=== PATIENT | female | born 1985 | race Caucasian/White ===

== ENCOUNTER 2018-01-06 21:33 | Emergency (ER) | payer MEDICAID ==
--- NOTE | 2018-01-07 00:26 | ER Document Report ---
HPI - HPI Pain Level: 4 Notes: Patient is a 32-year-old female who presents with chief complaint of left hand pain near digits 1 and 2. Patient reports that she woke up this morning with the pain, patient unsure if she has had any injury to the area. Patient does have a history of tendinitis however she states this feels different and is in a different location. - REPRODUCTIVE Reproductive: DENIES: : - MUSCULOSKELETAL Musculoskeletal: REPORTS: Extremity pain - left hand Past Medical History - General Information source: Patient - Social History Smoking Status: Never Smoker Frequency of alcohol use: None Drug Abuse: None Family History: Reviewed & Not Pertinent Patient has suicidal ideation: No Patient has homicidal ideation: No - Past Medical History Cardiac Medical History: Denies: Hx Coronary Artery Disease, Hx Hypertension Pulmonary Medical History: Denies: Hx Asthma Endocrine Medical History: Denies: Hx Diabetes Mellitus Type 1, Hx Diabetes Mellitus Type 2 Renal/ Medical History: Denies: Hx Peritoneal Dialysis Musculoskeletal Medical History: Reports Hx Fibromyalgia, Reports Other - Tendinitis Past Surgical History: Reports: Hx Orthopedic Surgery - rt knee, Hx Tonsillectomy - Immunizations Immunizations up to date: Yes Hx Diphtheria, Pertussis, Tetanus Vaccination: Yes Vertical Provider Document - CONSTITUTIONAL Notes: PHYSICAL EXAMINATION: GENERAL: Well-appearing, well-nourished and in no acute distress. HEAD: Atraumatic, normocephalic. EYES: Pupils equal round extraocular movements intact, conjunctiva are normal. ENT: Nares patent NECK: Normal range of motion LUNGS: No respiratory distress Musculoskeletal: Normal range of motion, no swelling or erythema noted to affected area. Capillary refill less than 3 seconds, normal motor and sensation distal to area of concern. NEUROLOGICAL: Normal speech, normal gait. PSYCH: Normal mood, normal affect. SKIN: Warm, Dry, normal turgor, no rashes or lesions noted. - INFECTION CONTROL TRAVEL OUTSIDE OF THE [place] IN LAST 30 DAYS: No Course - Re-evaluation Re-evalutation: X-ray is negative for any acute fracture or dislocation. Patient will be placed in a Nilo wrap for comfort and discharged home in stable condition. - Vital Signs Vital signs: Temp Pulse Resp BP Pulse Ox 99.0 F 57 L 20 121/65 99 01/06/18 22:14 01/06/18 22:14 01/06/18 22:14 01/06/18 22:14 01/06/18 22:14 Procedures - Immobilization Left hand Immobilizer type: Nilo wrap Discharge - Discharge Clinical Impression: Contusion Qualifiers: Encounter type: initial encounter Contusion area: hand Laterality: left Qualified Code(s): S60.222A - Contusion of left hand, initial encounter Condition: Stable Disposition: HOME, SELF-CARE Additional Instructions: Contusion Your injury has resulted in a contusion -- a crushing of the deep tissues. No injury to important structures was detected during the physician's exam. Contusions vary in the amount of pain they cause, and in the length of time required for healing. Typically, the area will become bruised, and will remain painful to touch for two or three weeks. However, most patients are back to working and playing within a few days. After the initial period of rest and cold-packs, your symptoms (together with the doctor's recommendations) will determine how rapidly you can get back to full activity. Usually this means "do what feels okay, but don't do things that hurt." If re-examination was recommended, it's important to follow up as instructed. Call the doctor or return any time if pain increases, if swelling becomes severe, if you develop numbness or weakness in an injured extremity, or if any other alarming symptoms occur. Please use the splint as needed for comfort. Take ibuprofen 600 mg every 6 hours as needed for pain and inflammation. You may try some ice to the area, 20 minutes on 20 minutes off. If the pain continues follow-up with orthopedics. I will provide you with contact information for them should you need it. Referrals: [facility], DO [ACTIVE STAFF] - Follow up as needed
--- NOTE | 2018-01-07 01:22 | RADIOLOGY REPORT (SQ) ---
EXAM DESCRIPTION: Left hand x-ray, three views dated January 07, 2018 at 1:03 AM. CLINICAL HISTORY: pain along 1st/2nd digits COMPARISON: None FINDINGS: Three x-ray views of the left hand were submitted. There is no acute fracture or dislocation. Bone mineralization is within normal limits. There is no radiopaque foreign body material. IMPRESSION: No acute fracture or dislocation.
[2018-01-07] MEDS ORDERED: KETOROLAC TROMETHAMINE 60 MG/2 ML SDV IM ONE (01:35)
[2018-01-07 02:32] VITALS: BP 111/67
== END 2018-01-07 02:32 | disposition home or self-care (01) ==
LOC: ER 21:33
DX: S60.222A Contusion of left hand, initial encounter (principal); X58.XXXA Exposure to other specified factors, initial encounter
CPT/HCPCS: 99283; 73130; L3908; J1885

== ENCOUNTER 2019-01-23 20:03 | Emergency (ER) | payer MEDICAID ==
[2019-01-23] MEDS ORDERED: NORMAL SALINE 1000 ML 1,000 ML IV ONE (21:37)
[2019-01-23] MEDS ORDERED: METOCLOPRAMIDE HCL INJ/PF 10 MG/2 ML SDV IV ONE (21:38)
--- NOTE | 2019-01-23 21:42 | ER Document Report ---
ED Medical Screen (RME) - General Chief Complaint: Nausea/Vomiting Stated Complaint: NAUSEA Time Seen by Provider: 01/23/19 21:31 Notes: Patient is a G4, P3 9-week female who presents emergency department with a chief complaint of nausea and vomiting. Denies any abdominal pain. Patient states that she has vomited twice, but has not been vomiting anymore because she refuses to eat or drink anything. She states that she is not had morning sickness with her previous pregnancies. She called the health department and they referred her to the emergency department. Denies any dysuria, vaginal discharge, or vaginal bleeding. Exam: Soft nontender abdomen. I have greeted and performed a rapid initial assessment of this patient. A comprehensive ED assessment and evaluation of the patient, analysis of test results and completion of medical decision making process will be conducted by an additional ED providers. TRAVEL OUTSIDE OF THE [place] IN LAST 30 DAYS: No - Related Data Allergies/Adverse Reactions: No Known Allergies Allergy (Verified 01/23/19 21:11) Past Medical History - Past Medical History Cardiac Medical History: Denies: Hx Coronary Artery Disease, Hx Hypertension Pulmonary Medical History: Denies: Hx Asthma Endocrine Medical History: Denies: Hx Diabetes Mellitus Type 1, Hx Diabetes Mellitus Type 2 Renal/ Medical History: Denies: Hx Peritoneal Dialysis Musculoskeltal Medical History: Reports Hx Fibromyalgia Past Surgical History: Reports: Hx Orthopedic Surgery - rt knee, Hx Tonsillectomy - Immunizations Immunizations up to date: Yes Hx Diphtheria, Pertussis, Tetanus Vaccination: Yes Physical Exam - Vital signs Vitals: Temp Pulse Resp BP Pulse Ox 98.2 F 53 L 16 147/62 H 99 01/23/19 20:46 01/23/19 20:46 01/23/19 20:46 01/23/19 20:46 01/23/19 20:46 Course - Vital Signs Vital signs: Temp Pulse Resp BP Pulse Ox 98.2 F 53 L 16 147/62 H 99 01/23/19 20:46 01/23/19 20:46 01/23/19 20:46 01/23/19 20:46 01/23/19 20:46
[2019-01-23 22:55] LABS: ABSOLUTE LYMPHOCYTES (AUTO) 2.6 10^3/uL (0.5-4.7); ABSOLUTE MONOCYTES (AUTO) 0.7 10^3/uL (0.1-1.4); ABSOLUTE NEUT (AUTO) 6.9 10^3/uL (1.7-8.2); BASOPHILS % (AUTO) 0.3 % (0-2); EOSINOPHILS % (AUTO) 0.3 % (0-6); HEMATOCRIT 37.1 % (36.0-47.0); HEMOGLOBIN 12.8 g/dL (12.0-15.5); LYMPHOCYTES % (AUTO) 25.6 % (13-45); MEAN CORPUSCULAR HEMOGLOBIN 30.9 pg (27.0-33.4); MEAN CORPUSCULAR HGB CONC 34.5 g/dL (32.0-36.0); MEAN CORPUSCULAR VOLUME 90 fl (80-97); MONOCYTES % (AUTO) 7.2 % (3-13); PLATELET COUNT 268 10^3/uL (150-450); RED BLOOD COUNT 4.14 10^6/uL (3.72-5.28); RED CELL DISTRIBUTION WIDTH 12.6 % (11.5-14.0); SEGMENTED NEUTROPHILS % (AUTO) 66.6 % (42-78); TOTAL CELLS COUNTED % (AUTO) 100 %; WHITE BLOOD COUNT 10.3 10^3/uL (4.0-10.5)
[2019-01-23 23:07] LABS: ALBUMIN 4.2 g/dL (3.5-5.0); ALKALINE PHOSPHATASE 67 U/L (38-126); ANION GAP 13 (5-19); ASPARTATE AMINO TRANSFERASE 19 U/L (14-36); BILIRUBIN,DIRECT 0.1 mg/dL (0.0-0.4); BILIRUBIN,TOTAL 0.5 mg/dL (0.2-1.3); BLOOD UREA NITROGEN 10 mg/dL (7-20); CALCIUM 9.9 mg/dL (8.4-10.2); CARBON DIOXIDE 22 mmol/L (22-30); CHLORIDE 104 mmol/L (98-107); GLUCOSE 84 mg/dL (75-110); POTASSIUM 3.8 mmol/L (3.6-5.0); TOTAL PROTEIN 7.2 g/dL (6.3-8.2)
--- NOTE | 2019-01-23 23:54 | ER Document Report ---
ED GI/ - General Chief Complaint: Nausea/Vomiting Stated Complaint: NAUSEA Time Seen by Provider: 01/23/19 21:31 Notes: Patient is a 33-year-old female that comes to the emergency department for chief complaint of nausea and vomiting in . She is at 9 weeks gestation by first trimester ultrasound, she takes vitamins, she is not on any other medications. She denies fever, vomiting blood, abnormal bowel movements, vaginal bleeding, or specific abdominal pain. She states today she vomited twice and she could not eat or drink anything. She has received IV fluids and Reglan from triage, she states actually now she feels much improved. No current complaints. Only other reported medical history is fibromyalgia. TRAVEL OUTSIDE OF THE [place] IN LAST 30 DAYS: No - Related Data Allergies/Adverse Reactions: No Known Allergies Allergy (Verified 01/23/19 21:11) Past Medical History - General Information source: Patient - Social History Smoking Status: Never Smoker Frequency of alcohol use: None Drug Abuse: None Lives with: Family Family History: Reviewed & Not Pertinent Patient has suicidal ideation: No Patient has homicidal ideation: No - Past Medical History Cardiac Medical History: Denies: Hx Coronary Artery Disease, Hx Hypertension Pulmonary Medical History: Denies: Hx Asthma Endocrine Medical History: Denies: Hx Diabetes Mellitus Type 1, Hx Diabetes Mellitus Type 2 Renal/ Medical History: Denies: Hx Peritoneal Dialysis Musculoskeletal Medical History: Reports Hx Fibromyalgia Past Surgical History: Reports: Hx Orthopedic Surgery - rt knee, Hx Tonsillectomy - Immunizations Immunizations up to date: Yes Hx Diphtheria, Pertussis, Tetanus Vaccination: Yes Review of Systems - Review of Systems Constitutional: No symptoms reported EENT: No symptoms reported Cardiovascular: No symptoms reported Respiratory: No symptoms reported Gastrointestinal: See HPI Genitourinary: No symptoms reported Female Genitourinary: See HPI Musculoskeletal: No symptoms reported Skin: No symptoms reported Hematologic/Lymphatic: No symptoms reported Neurological/Psychological: No symptoms reported Physical Exam - Vital signs Vitals: Temp Pulse Resp BP Pulse Ox 98.2 F 53 L 16 147/62 H 99 01/23/19 20:46 01/23/19 20:46 01/23/19 20:46 01/23/19 20:46 01/23/19 20:46 - Notes Notes: GENERAL: Alert, interacts well. No acute distress. HEAD: Normocephalic, atraumatic. EYES: Pupils equal, round, and reactive to light. Extraocular movements intact. ENT: Oral mucosa moist, tongue midline. Oropharynx unremarkable. NECK: Full range of motion. Supple. Trachea midline. LUNGS: Clear to auscultation bilaterally, no wheezes, rales, or rhonchi. No respiratory distress. HEART: Regular rate and rhythm. No murmur ABDOMEN: Soft, non-tender. Non-distended. Bowel sounds present in all 4 quadrants. GENITOURINARY: Deferred EXTREMITIES: Moves all 4 extremities spontaneously. No edema, normal radial and dorsalis pedis pulses bilaterally. No cyanosis. BACK: no cervical, thoracic, lumbar midline tenderness. No saddle anesthesia, normal distal neurovascular exam. Moves all extremities in full range of motion. NEUROLOGICAL: Alert and oriented x3. Normal speech. Cranial nerves II through XII grossly intact. PSYCH: Normal affect, normal mood. SKIN: Warm, dry, normal turgor. No rashes or lesions noted. Course - Re-evaluation Re-evalutation: Patient is well-appearing on my exam. Vital signs unremarkable, soft benign abdomen, no current complaints. Patient will be given p.o. trial. CBC unremarkable, chemistry unremarkable, urinalysis showing a few ketones but is otherwise nonspecific. Patient without vaginal bleeding and already has an IUP confirmed. Patient given additional IV fluids, tolerated p.o. without difficulty, no additional complaints or symptoms. Patient will be discharged with symptom management, discussed follow-up and return precautions. Patient states appreciation and agreement. - Vital Signs Vital signs: Temp Pulse Resp BP Pulse Ox 98.4 F 58 L 18 120/64 100 01/24/19 02:31 01/24/19 02:31 01/24/19 02:31 01/24/19 02:31 01/24/19 02:31 - Laboratory Result Diagrams: 01/23/19 22:28 01/23/19 22:28 Laboratory results interpreted by me: 01/23/19 23:48 Urine Ketones 20 H Ur Leukocyte Esterase MODERATE H Urine Ascorbic Acid 40 H Discharge - Discharge Clinical Impression: Vomiting affecting , Dehydration Condition: Stable Disposition: HOME, SELF-CARE Additional Instructions: Your evaluation shows dehydration but is otherwise reassuring. Take the Reglan if needed for nausea/vomiting, you can also add Benadryl to th is, [id number] ranitidine can help as well if needed. Follow-up with your provider for additional management. Return if you worsen including uncontrolled vomiting, fever, severe pain in the abdomen, or any other concerning or worsening symptoms. Prescriptions: Metoclopramide HCl [Reglan] 5 mg PO ASDIR PRN #30 tablet PRN Reason:
[2019-01-24 00:04] LABS: APPEARANCE,URINE SLIGHTLY-CLOUDY; BILIRUBIN,URINE NEGATIVE (NEGATIVE); COLOR,URINE YELLOW; GLUCOSE, URINE NEGATIVE (NEGATIVE); KETONES,URINE 20 mg/dL (NEGATIVE); LEUKOCYTE ESTERASE,URINE MODERATE (NEGATIVE); NITRITE,URINE NEGATIVE (NEGATIVE); PROTEIN,URINE NEGATIVE (NEGATIVE); URINE SPECIFIC GRAVITY 1.029; UROBILINOGEN,URINE NEGATIVE mg/dL (<2.0)
[2019-01-24] MEDS ORDERED: RINGERS SOLUTION,LACTATED 1,000 ML IV ONE (00:38)
[2019-01-24 02:41] VITALS: BP 120/64
== END 2019-01-24 02:31 | disposition home or self-care (01) ==
LOC: ER 20:03
DX: O21.8 Other vomiting complicating pregnancy (principal); O99.281 Endocrine, nutritional and metabolic diseases complicating pregnancy, first trimester; E86.0 Dehydration; Z3A.09 9 weeks gestation of pregnancy; Z79.899 Other long term (current) drug therapy
CPT/HCPCS: 36415; 85025; 80053; 81001; J2765; J7030; J7120; 87086; 87088; 96361; 96374; 99283

== ENCOUNTER 2019-05-31 09:30 | Outpatient (CLI) | payer MEDICAID ==
[2019-05-31 10:08] LABS: BACTERIA (WET MOUNT) 3+ BACTERIA SEEN; EPITHELIALS (WET MOUNT) 4+ EPITHELIALS SEEN; T.VAGINALIS (WET MOUNT) NO TRICHOMONAS SEEN; WBCS (WET MOUNT) RARE WBCS SEEN; YEAST (WET MOUNT) NO YEAST SEEN
[2019-05-31 10:13] LABS: APPEARANCE,URINE SLIGHTLY-CLOUDY; BILIRUBIN,URINE NEGATIVE (NEGATIVE); COLOR,URINE YELLOW; GLUCOSE, URINE NEGATIVE (NEGATIVE); KETONES,URINE TRACE mg/dL (NEGATIVE); LEUKOCYTE ESTERASE,URINE SMALL (NEGATIVE); NITRITE,URINE NEGATIVE (NEGATIVE); PROTEIN,URINE NEGATIVE (NEGATIVE); URINE SPECIFIC GRAVITY 1.013; UROBILINOGEN,URINE NEGATIVE mg/dL (<2.0)
[2019-05-31] MEDS ORDERED: DEXTROSE 5%-LACTATED RINGERS 1,000 ML IV ONE (10:24)
[2019-05-31 10:34] LABS: URINE AMPHETAMINES SCREEN NEGATIVE; URINE BARBITURATES SCREEN NEGATIVE; URINE BENZODIAZEPINES SCREEN NEGATIVE; URINE COCAINE SCREEN NEGATIVE; URINE MARIJUANA (THC) SCREEN NEGATIVE; URINE METHADONE SCREEN NEGATIVE; URINE PHENCYCLIDINE SCREEN NEGATIVE
[2019-05-31 11:39] LABS: CHLAM PCR NOT DETECTED (NOT DETECT)
--- NOTE | 2019-05-31 12:10 | RADIOLOGY REPORT (SQ) ---
EXAM DESCRIPTION: U/S OB LIMITED COMPLETED DATE/TIME: 05/31/2019 11:08 am REASON FOR STUDY: cervical length pre term labor COMPARISON: None. TECHNIQUE: Limited transvaginal and transabdominal grayscale ultrasound for evaluation of specific r equested obstetrical parameters. LIMITATIONS: None. FINDINGS: CERVICAL LENGTH: 4.8 cm. Closed. JORDAN: 9.2 cm. FHR: 158 beats per minute. PRESENTATION: Cephalic. PLACENTA: Posterior ANATOMY: Not assessed OTHER: No other significant findings. IMPRESSION: LIMITED OBSTETRICAL ULTRASOUND WITH MEASURED PARAMETERS DELINEATED ABOVE. Trimester of : Second trimester - 13 weeks 1 day to 27 weeks 6 days. TECHNICAL DOCUMENTATION: JOB ID: [id number] 2010 [employer]- All Rights Reserved Reading location - IP/workstation name: [email or web address]
== END 2019-05-31 11:59 | disposition home or self-care (01) ==
LOC: LC 09:30
PROVIDERS: ATTEND Obstetrics & Gynecology
PROC: 4A1HXCZ Monitoring of Products of Conception, Cardiac Rate, External Approach (ICD-10-PCS; principal; 2019-05-31)
DX: O21.2 Late vomiting of pregnancy (principal); Z3A.26 26 weeks gestation of pregnancy
CPT/HCPCS: 76815; 80307; 81001; 87210; 87491; 87591

== ENCOUNTER 2019-08-10 13:24 | Outpatient (CLI) | payer MEDICAID ==
[2019-08-10 13:57] LABS: APPEARANCE,URINE CLOUDY; BILIRUBIN,URINE NEGATIVE (NEGATIVE); COLOR,URINE AMBER; GLUCOSE, URINE NEGATIVE (NEGATIVE); KETONES,URINE 20 mg/dL (NEGATIVE); LEUKOCYTE ESTERASE,URINE LARGE (NEGATIVE); NITRITE,URINE NEGATIVE (NEGATIVE); PROTEIN,URINE 30 mg/dL (NEGATIVE); UROBILINOGEN,URINE NEGATIVE mg/dL (<2.0)
[2019-08-10 14:21] LABS: URINE AMPHETAMINES SCREEN NEGATIVE; URINE BARBITURATES SCREEN NEGATIVE; URINE BENZODIAZEPINES SCREEN NEGATIVE; URINE COCAINE SCREEN NEGATIVE; URINE MARIJUANA (THC) SCREEN NEGATIVE; URINE METHADONE SCREEN NEGATIVE; URINE PHENCYCLIDINE SCREEN NEGATIVE
--- NOTE | 2019-08-10 14:29 | Non Stress Test Report ---
Non Stress Test Datetime Report Generated by CPN: 08/10/2019 14:29 DEMOGRAPHIC Test Number: 1 EGA NST: 37.0 INDICATION Indication for Study (NST) Other: labor check VITAL SIGNS Temperature - NST: 99.5 Pulse - NST: 59 RESP - NST: 18 NBPSYS NST: 104 NBPDIA NST: 64 MONITORING Monitor Explained: Monitor Explained; Test Explained Time on Monitor: 08/10/2019 13:45 Time off Monitor: 08/10/2019 14:27 NST Duration: 42 NST INTERVENTIONS NST Interventions: PO Hydration; Reposition Patient Physician Notified NST: A. Odom, CNM BABY A: [id number] BABY A Movement : Present Contraction Frequency : 6-7 FHR Baseline : 135 Accelerations : 15X15 Decelerations : None Variability : Moderate 6-25bpm NST Review: Meets Criteria for Reactive NST NST Review and Verified By : Kerline De La Cruz RN NST Results: Reactive NST REPORT Report Trigger: Send Report
== END 2019-08-10 15:11 | disposition home or self-care (01) ==
LOC: LC 13:24
PROVIDERS: ATTEND Obstetrics & Gynecology
DX: O47.03 False labor before 37 completed weeks of gestation, third trimester (principal); Z3A.36 36 weeks gestation of pregnancy
CPT/HCPCS: 80307; 81005

== ENCOUNTER 2019-08-28 12:41 | Inpatient (IN) | payer MEDICAID ==
[2019-08-28 13:54] LABS: APPEARANCE,URINE CLEAR; COLOR,URINE STRAW; GLUCOSE, URINE NEGATIVE (NEGATIVE)
[2019-08-28 13:55] LABS: BILIRUBIN,URINE NEGATIVE (NEGATIVE); KETONES,URINE NEGATIVE (NEGATIVE); LEUKOCYTE ESTERASE,URINE NEGATIVE (NEGATIVE); NITRITE,URINE NEGATIVE (NEGATIVE); PROTEIN,URINE NEGATIVE (NEGATIVE); URINE SPECIFIC GRAVITY 1.007; UROBILINOGEN,URINE NEGATIVE mg/dL (<2.0)
[2019-08-28] MEDS ORDERED: RINGERS SOLUTION,LACTATED 1,000 ML IV PRN (13:56)
--- NOTE | 2019-08-28 14:08 | Admission Physical ---
Datetime Report Generated by CPN: 08/28/2019 14:08 CURRENT ADMISSION Chief Complaint: Uterine Contractions; Suspected Ruptured Membranes Admit Impression : Term, Intrauterine ; Ruptured Membranes Admit Plan: Admit to Unit; Initiate Labor Protocol ALLERGIES Medication Allergies: No Medication Allergies: No Known Allergies (08/28/2019) Latex: No Latex Allergies Food Allergies: None Environmental Allergies: None OBSTETRICAL HISTORY EDC: 08/31/2019 00:00 : 4 Para: 3 Term: 3 Ectopic: 0 Livin Cesareans: 0 Multiple Births: 1 Gestational Diabetes: No Rh Sensitization: No Incompetent Cervix: No SAIRA: No Infertility: No ART Treatment: No Uterine Anomaly: No IUGR: No Hx Previous C/S: No Macrosomia: No Hx Loss/Stillborn: No PIH: No Hx : No Placenta Previa/Abruption: No Depression/PP Depression: Yes PTL/PROM: Yes Post Hemorrhage: Yes Current Procedures: Ultrasound Obstetrical History Comments: G1-2006 39 week G2- 2007 40 weeks PPH G3- 2009 39 weeks hx PTL at 24 weeks, PPH G4- current SEE RECORDS Marijuana : No Cocaine: No Other Illicit Drugs: No Cigarettes: Former Smoker. [id number] MEDICAL HISTORY Diabetes: No Blood Transfusion: No Pulmonary Disease (Asthma, TB): Yes Breast Disease: No Hypertension: No Dispatcher Clerk Surgery: No Heart Disease: No Hosp/Surgery: Yes Autoimmune Disorder: No Anesthetic Complications: No Kidney Disease: No Abnormal Pap Smear: No Neuro/Epilepsy: No Psychiatric Disorders: Yes Other Medical Diseases: No Hepatitis/Liver Disease: No Significant Family History: No Varicosities/Phlebitis: No Trauma/Violence : No Thyroid Dysfunction: No Medical History Comments: asthma, anxiety, depression, knee surgery 2010, tonsillectomy 2011, deviated septum-2012, Childbirth INFECTIOUS HISTORY Gonorrhea: No Genital Herpes: No Chlamydia: No Tuberculosis: No Syphilis: No Hepatitis: No HIV/AIDS Exposure: No Rash or Viral Illness: No HPV: Yes Infectious History Comments: ASCUS + HPV 2019 f/u PP PHYSICAL EXAM General: Normal HEENT: Normal Neurologic: Normal Thyroid: Normal Heart: Normal Lungs: Normal Breast: Normal Back: Normal Abdomen: Normal Genitourinary Exam: Normal Extremities: Normal DTRs: Normal Pelvic Type: Adequate Vital Signs: Reviewed VAGINAL EXAM Dilatation: 3 Contraction Comments: q3 MEMBRANES Membranes: Ruptured FETUS A EGA: 39.4 Monitoring: External US FHR- Baseline: 140 Variability: Moderate 6-25bpm Accelerations: 15X15 Decelerations: None FHR Category: Category I Admit Comment: Pt presents from home c/o leaking fluid in the shower this morning starting around 1030. at 39 wks. +Amnisure result. VE 3 cm per RN on admission. ? Light meconium stained fluid. GBS negative. Pt desires natural labor. Plan to admit w/ routine labor orders. Attending MD is Dr Shay and she is aware of pt status PLANS FOR LABOR AND DELIVERY Labor and Delivery: None Pain Management: None Feeding Preference: Breast Benefit of Breast Feed Discussed: Yes Circumcision: N/A INFORMED CONSENT Assignment: Marilin Shay MD Signature: with User ID: [email or web address] : with User ID: [email or web address]
[2019-08-28 14:17] LABS: URINE AMPHETAMINES SCREEN NEGATIVE; URINE BARBITURATES SCREEN NEGATIVE; URINE BENZODIAZEPINES SCREEN NEGATIVE; URINE MARIJUANA (THC) SCREEN NEGATIVE; URINE METHADONE SCREEN NEGATIVE; URINE PHENCYCLIDINE SCREEN NEGATIVE
[2019-08-28 14:23] LABS: URINE COCAINE SCREEN NEGATIVE
[2019-08-28] MEDS ORDERED: NALBUPHINE HCL INJ 10 MG/1 ML AMPULE INJ ONE (14:28)
[2019-08-28] MEDS ORDERED: NALBUPHINE HCL INJ 10 MG/1 ML AMPULE ONE (14:31)
[2019-08-28] MEDS ORDERED: OXYTOCIN/0.9 % SODIUM CHLORIDE 30 UNIT/500 ML RTUINJ ONE (14:37)
[2019-08-28] MEDS ORDERED: MISOPROSTOL 0.2 MG TABLET ONE (14:37)
[2019-08-28] MEDS ORDERED: LIDOCAINE 1% INJ-PF (10 MG/ML) 30 ML SDV ONE (14:37)
[2019-08-28] MEDS ORDERED: OXYTOCIN 10 UNIT/ML VIAL ONE (14:37)
[2019-08-28 14:57] LABS: ABSOLUTE EOSINOPHILS # (AUTO) 0.1 10^3/uL (0.0-0.6); ABSOLUTE LYMPHOCYTES (AUTO) 3.4 10^3/uL (0.5-4.7); ABSOLUTE MONOCYTES (AUTO) 1.1 10^3/uL (0.1-1.4); ABSOLUTE NEUT (AUTO) 6.6 10^3/uL (1.7-8.2); BASOPHILS % (AUTO) 0.3 % (0-2); EOSINOPHILS % (AUTO) 0.9 % (0-6); HEMATOCRIT 32.3 % (36.0-47.0); HEMOGLOBIN 11.1 g/dL (12.0-15.5); LYMPHOCYTES % (AUTO) 30.2 % (13-45); MEAN CORPUSCULAR HEMOGLOBIN 29.6 pg (27.0-33.4); MEAN CORPUSCULAR HGB CONC 34.3 g/dL (32.0-36.0); MEAN CORPUSCULAR VOLUME 86 fl (80-97); PLATELET COUNT 362 10^3/uL (150-450); RED BLOOD COUNT 3.74 10^6/uL (3.72-5.28); RED CELL DISTRIBUTION WIDTH 13.7 % (11.5-14.0); SEGMENTED NEUTROPHILS % (AUTO) 58.6 % (42-78); TOTAL CELLS COUNTED % (AUTO) 100 %; WHITE BLOOD COUNT 11.3 10^3/uL (4.0-10.5)
[2019-08-28] MEDS ORDERED: MEASLES,MUMPS&RUBELLA VACC/PF 0.5 ML VIAL SUBCUT PRN (15:17)
[2019-08-28] MEDS ORDERED: MAGNESIUM HYDROXIDE SUSP 30 ML UDCUP PO PRN (15:17)
[2019-08-28] MEDS ORDERED: HYDROCODONE/ACETAMINOPHEN 5-325 MG TABLET PO PRN (15:17)
[2019-08-28] MEDS ORDERED: BENZOCAINE/MENTHOL AEROSOL SPRAY 56 ML TOP PRN (15:17)
[2019-08-28] MEDS ORDERED: ACETAMINOPHEN 650 MG SUPP.RECT PR PRN (15:17)
[2019-08-28] MEDS ORDERED: PROMETHAZINE HCL 25 MG SUPP.RECT PR PRN (15:17)
[2019-08-28] MEDS ORDERED: GLYCERIN/WITCH HAZEL LEAF 1 EACH MED..WIPE TP PRN (15:17)
[2019-08-28] MEDS ORDERED: ACETAMINOPHEN WITH CODEINE #3 TABLET PO PRN (15:17)
[2019-08-28] MEDS ORDERED: PROMETHAZINE HCL INJ 25 MG/1 ML VIAL IV PRN (15:17)
[2019-08-28] MEDS ORDERED: PSEUDOEPHEDRINE HCL 30 MG TABLET PO PRN (15:17)
[2019-08-28] MEDS ORDERED: ZOLPIDEM TARTRATE 5 MG TABLET PO PRN (15:17)
[2019-08-28] MEDS ORDERED: PROMETHAZINE HCL 25 MG TABLET PO PRN (15:17)
[2019-08-28] MEDS ORDERED: DIPHENHYDRAMINE HCL 25 MG CAPSULE PO PRN (15:17)
[2019-08-28] MEDS ORDERED: DIBUCAINE 1% OINTMENT 28 GM TP PRN (15:17)
[2019-08-28] MEDS ORDERED: DIPH/PERTUSS(ACELL)/TETANUS VAC/PF 0.5 ML SYR (>=10YO) IM PRN (15:17)
[2019-08-28] MEDS ORDERED: NA PHOS,M-B/NA PHOS,DI-BA (ADULT) 133 ML ENEMA PR PRN (15:17)
--- NOTE | 2019-08-28 15:27 | Warning Signs in Babies ---
VOD Warning Signs Datetime Report Generated by [facility]: 08/28/2019 15:27 VOD#[id number] -Warning Signs in Babies: Viewed with Parent(s)/Family (08/28/2019 15:26:Washington Long RN)
[2019-08-28] MEDS: IBUPROFEN 800 MG TABLET PO SCH ×2 (17:20→22:09)
[2019-08-28] MEDS: DOCUSATE SODIUM 100 MG CAPSULE PO SCH (17:31)
[2019-08-28] MEDS: FERROUS SULFATE 325 MG TABLET PO SCH (17:31)
--- NOTE | 2019-08-28 17:36 | Delivery Summary ---
Del Sum A-C Datetime Report Generated by CPN: 08/28/2019 17:35 DELIVERY PERSONNEL DELIVERY PERSONNEL: [id number] Delivery Doctor:: Aby Lobo CNM Labor and Delivery Nurse:: Washington Long RNclinical research manager Nurse:: HERMINIO Red[place] Nursery Nurse:: RAPHAEL Havrey Tech/ROPE MAKING MACHINE OPERATOR: Cici Shanks, DIRECTOR HEDIS MATERNAL INFORMATION Delivery Anesthesia: None Medications After Delivery: Pitocin 30 Units in 500ml NS/D5W; Other-Please Comment Meds After Delivery Comment: Cytotec 200mcg SL Delivery QBL: 300 Maternal Complications: None Provider Comments: of a VFI, placed on pts abdoman crying and in stable condition. Cord clamped and cut after one minute. Placenta S/C/I, ff with decreased lochia, IV Pitocin infusing. Perineum repaired. Pt and baby in stable condition, skin to skin. Pt plans to breastfeed. QBL 300, Apgars 8,9. Attending MD is Dr Shay LABOR SUMMARY EDC: 08/31/2019 00:00 No. Babies in Womb: 1 Attempted: No Labor Anesthesia: None LABOR INFORMATION Reason for Induction: Not Applicable Onset of Labor: 08/28/2019 11:00 Complete Dilatation: 08/28/2019 14:46 Oxytocin: N/A Group B Beta Strep: neg Antibiotics # of Doses: 0 Steroids Given: None Reason Steroids Not Administered: Not Applicable MEMBRANES Membranes Rupture Method: Spontaneous Rupture of Membranes: 08/28/2019 10:30 Length of Rupture (hr): 4.42 Amniotic Fluid Color: Light Meconium Amniotic Fluid Amount: Moderate Amniotic Fluid Odor: Normal STAGES OF LABOR Stage 1 hr: 3 Stage 1 min: 46 Stage 2 hr: 0 Stage 2 min: 9 Stage 3 hr: 0 Stage 3 min: 4 Total Time in Labor hr: 3 Total Time in Labor min: 59 VAGINAL DELIVERY Episiotomy: None Laceration #1: Perineal Laceration Extension #1: Second Degree Laceration Repair Note: 2nd degree laceration repaired using 1% lidocaine, 3.0 vicryl Sponge Count Correct: N/A Sharps Count Correct: N/A CSECTION DELIVERY Primary Indication: N/A Secondary Indication: N/A CSection Incidence: N/A Labor: N/A Elective: N/A CSection Incision: N/A BABY A INFORMATION Infant Delivery Date/Time: 08/28/2019 14:55 Method of Delivery: Vaginal Nurse Controlled Delivery: No Born in Route : No : N/A Forceps: N/A Vacuum Extraction: N/A Shoulder Dystocia : No PRESENTATION/POSITION BABY A Presentation: Cephalic Cephalic Presentation: Vertex Vertex Position: Right Occipital Anterior Breech Presentation: N/A PLACENTA INFORMATION BABY A Placenta Delivery Time : 08/28/2019 14:59 Placenta Method of Delivery: Spontaneous Placenta Status: Delivered SCORES BABY A Heart Rate 1 min: >100 bpm Resp Effort 1 min: Good Cry Reflex Irritability 1 min: Cough or Sneeze or Pulls Away Muscle Tone 1 min: Some Flexion of Extremities Color 1 min: Body [place], Extremities Blue Resuscitation Effort 1 min: Tactile Stimulation SCORE 1 MIN: 8 Heart Rate 5 min: >100 bpm Resp Effort 5 min: Good Cry Reflex Irritability 5 min: Cough or Sneeze or Pulls Away Muscle Tone 5 min: Active Motion Color 5 min: Body [place], Extremities Blue Resuscitation Effort 5 min: Tactile Stimulation SCORE 5 MIN: 9 INFORMATION BABY A Gestational Age at Delivery: 39.4 Gestational Status: Full Term- 39- 40.6 Weeks Outcome : Liveborn Condition : Stable Sex: Female IDENTIFICATION BABY A Infant Verification Date/Time: 08/28/2019 15:09 ID Band Number: [id number] Mother's Name Verified: Yes RN Verifying Infant: TMartin,RN Additional Verifying Personnel: CVanCannon,DIRECTOR HEDIS WEIGHT/LENGTH BABY A Birthweight (gm): 3607 Infant Weight (lb): 7 Weight (oz): 15 Length (in): 19.50 Length (cm): 49.53 CORD INFORMATION BABY A No. Cord Vessels: 3 Nuchal Cord : N/A Cord Blood Taken: Yes-For Eval (Mom's Blood Type - or O+) Infant Suction: Mouth ASSESSMENT BABY A Skin to Skin: Yes Infant Care By: CWspuibel,RN BABY B INFORMATION : N/A SIGNATURES Assignment: Marilin Shay MD Signature: with User ID: Joseph : with User ID: Joseph
[2019-08-28] MEDS: FAMOTIDINE 20 MG TABLET PO SCH (22:12)
[2019-08-29] MEDS: IBUPROFEN 800 MG TABLET PO SCH ×3 (05:06→22:17)
[2019-08-29 07:01] LABS: HEMATOCRIT 29.7 % (36.0-47.0); HEMOGLOBIN 10.2 g/dL (12.0-15.5); MEAN CORPUSCULAR HEMOGLOBIN 29.9 pg (27.0-33.4); MEAN CORPUSCULAR HGB CONC 34.5 g/dL (32.0-36.0); MEAN CORPUSCULAR VOLUME 87 fl (80-97); PLATELET COUNT 258 10^3/uL (150-450); RED BLOOD COUNT 3.42 10^6/uL (3.72-5.28); RED CELL DISTRIBUTION WIDTH 13.5 % (11.5-14.0); WHITE BLOOD COUNT 12.1 10^3/uL (4.0-10.5)
[2019-08-29] MEDS: DOCUSATE SODIUM 100 MG CAPSULE PO SCH ×2 (10:16→17:16)
[2019-08-29] MEDS: FAMOTIDINE 20 MG TABLET PO SCH ×2 (10:16→22:17)
[2019-08-29] MEDS: SENNOSIDES/DOCUSATE 8.6-50 MG 1 EACH TABLET PO SCH (10:16)
[2019-08-29] MEDS: PRENATAL VITAMIN W DHA CAPSULE PO SCH (10:16)
[2019-08-29] MEDS: FERROUS SULFATE 325 MG TABLET PO SCH ×2 (10:16→17:16)
--- NOTE | 2019-08-29 13:19 | PDOC PROGRESS REPORT ---
Subjective-OB Progress Note for:: 08/29/19 Subjective: 34yo G4 now P4 s/p ppd1. Pt reports pain well controlled with medication no concerns today, voiding without difficulty Physical Exam (OB) Vital Signs: Temp Pulse Resp BP Pulse Ox 97.5 F 53 L 16 109/62 98 08/29/19 10:58 08/29/19 10:58 08/29/19 10:58 08/29/19 10:58 08/29/19 10:58 Intake & Output 08/28/19 08/29/19 08/30/19 06:59 06:59 06:59 Intake Total 400 Balance 400 Weight 71.9 kg - General General Appearance: Appears well In distress: None - PIH/Pre-Eclampsia Headache: Absent Epigastric Pain: No Visual Changes: No - Episiotomy/Laceration Site Condition: Well Approximated - Lochia Lochia Amount: Small 10-25 ml Lochia Color: Rubra/Red - Abdomen Description: Soft, Round Hernia Present: No Fundal Description: Firm, Midline Fundal Height: u/u - u/2 - Respiratory Respiratory Status: No respiratory distress - Extremities Upper extremity: Normal inspection Lower extremities: Normal inspection - Neurological Cognition: Normal Orientation: AAOx4 - Psychological Associated symptoms: Normal affect, Normal mood Objective-Diagnostic Laboratory: 08/29/19 06:15 08/28/19 08/28/19 08/28/19 13:00 14:37 14:37 WBC 11.3 H RBC 3.74 Hgb 11.1 L Hct 32.3 L MCV 86 MCH 29.6 MCHC 34.3 RDW 13.7 Plt Count 362 Seg Neutrophils % 58.6 Urine Color STRAW Urine Appearance CLEAR Urine pH 6.0 Ur Specific [place] 1.007 Urine Protein NEGATIVE Urine Glucose (UA) NEGATIVE Urine Ketones NEGATIVE Urine Blood NEGATIVE Urine Nitrite NEGATIVE Ur Leukocyte Esterase NEGATIVE Blood Type A NEGATIVE Antibody Screen NEGATIVE 08/29/19 08/29/19 06:15 06:15 WBC 12.1 H RBC 3.42 L Hgb 10.2 L Hct 29.7 L MCV 87 MCH 29.9 MCHC 34.5 RDW 13.5 Plt Count 258 Seg Neutrophils % Urine Color Urine Appearance Urine pH Ur Specific [place] Urine Protein Urine Glucose (UA) Urine Ketones Urine Blood Urine Nitrite Ur Leukocyte Esterase Blood Type A NEGATIVE Antibody Screen Assessment and Plan(PN) - Assessment and Plan (1) Vaginal delivery Is this a current diagnosis for this admission?: Yes Plan: routine pp care (2) Acute blood loss anemia Is this a current diagnosis for this admission?: Yes Plan: increase dietary iron and FeSO4 BID (3) Perineal laceration during delivery, delivered Is this a current diagnosis for this admission?: Yes Plan: continue to monitor for s/s of infection (4) Tobacco smoking affecting Qualifiers: Trimester: unspecified trimester Qualified Code(s): O99.330 - Smoking (tobacco) complicating , unspecified trimester Is this a current diagnosis for this admission?: Yes Plan: cessation encouraged (5) History of anxiety Is this a current diagnosis for this admission?: Yes Plan: discharge planning consult placed (6) History of depression Is this a current diagnosis for this admission?: Yes Plan: discharge planning consult placed, denies h/s ideation - Time Spent with Patient Time with patient: Less than 15 minutes Smoking Education Provided: Over 3 minutes Medications reviewed and adjusted accordingly: Yes - Disposition Anticipated Discharge: Home Within: within 24 hours
[2019-08-30] MEDS: IBUPROFEN 800 MG TABLET PO SCH ×2 (06:04→15:14)
[2019-08-30] MEDS: SENNOSIDES/DOCUSATE 8.6-50 MG 1 EACH TABLET PO SCH (09:23)
[2019-08-30] MEDS: FAMOTIDINE 20 MG TABLET PO SCH (09:23)
[2019-08-30] MEDS: PRENATAL VITAMIN W DHA CAPSULE PO SCH (09:23)
[2019-08-30] MEDS: FERROUS SULFATE 325 MG TABLET PO SCH (09:23)
[2019-08-30] MEDS: DOCUSATE SODIUM 100 MG CAPSULE PO SCH (09:23)
[2019-08-30] MEDS ORDERED: DIPH/PERTUSS(ACELL)/TETANUS VAC/PF 0.5 ML SYR (>=10YO) IM PRN (11:30)
[2019-08-30] MEDS ORDERED: PROMETHAZINE HCL INJ 25 MG/1 ML VIAL IV PRN (11:30)
[2019-08-30] MEDS ORDERED: MEASLES,MUMPS&RUBELLA VACC/PF 0.5 ML VIAL SUBCUT PRN (11:30)
[2019-08-30 12:19] VITALS: BP 115/71
--- NOTE | 2019-08-30 15:10 | PDOC DISCHARGE SUMMARY ---
Impression - Admit/DC Date/PCP Admission Date/Primary Care Provider: 08/28/19 13:58 ROBINA BRAUN MD Discharge Date: 08/30/19 - Discharge Diagnosis (1) Vaginal delivery Is this a current diagnosis for this admission?: Yes (2) Acute blood loss anemia Is this a current diagnosis for this admission?: Yes (3) Perineal laceration during delivery, delivered Is this a current diagnosis for this admission?: Yes (4) Tobacco smoking affecting Is this a current diagnosis for this admission?: Yes (5) History of anxiety Is this a current diagnosis for this admission?: Yes (6) History of depression Is this a current diagnosis for this admission?: Yes - Assessment Summary: 34yo G1 now P1 s/p ppd 2 stable and ready for discharge, understands warn ing s/s and reasons to seek immediate care. - Additional Information Resuscitation Status: Full Code Discharge Diet: As Tolerated, Regular Discharge Activity: Activity As Tolerated, Balance Activity w/Rest, No Lifting Over 10 Pounds, Pelvic Rest, No tub bath, Walk Frequently Referrals: ROBINA BRAUN MD [Primary Care Provider] - (Follow up in 4 weeks. Call the office and make an appointment.) Prescriptions: Ibuprofen [Motrin 800 mg Tablet] 800 mg PO Q8HP PRN #20 tablet PRN Reason: Abdominal Cramping Docusate Sodium [Colace 100 mg Capsule] 100 mg PO BID #60 capsule Ferrous Sulfate [Feosol 325 mg Tablet] 325 mg PO BID #60 tablet Home Medications: Vits96/Iron Fum/Folic [ Tablet] 1 each PO DAILY 05/31/19 Docusate Sodium [Colace 100 mg Capsule] 100 mg PO BID #60 capsule 08/29/19 Ferrous Sulfate [Feosol 325 mg Tablet] 325 mg PO BID #60 tablet 08/29/19 Ibuprofen [Motrin 800 mg Tablet] 800 mg PO Q8HP PRN #20 tablet 08/29/19 Results Laboratory Results: WBC 12.1 10^3/uL (4.0-10.5) H 08/29/19 06:15 RBC 3.42 10^6/uL (3.72-5.28) L 08/29/19 06:15 Hgb 10.2 g/dL (12.0-15.5) L 08/29/19 06:15 Hct 29.7 % (36.0-47.0) L 08/29/19 06:15 MCV 87 fl (80-97) 08/29/19 06:15 MCH 29.9 pg (27.0-33.4) 08/29/19 06:15 MCHC 34.5 g/dL (32.0-36.0) 08/29/19 06:15 RDW 13.5 % (11.5-14.0) 08/29/19 06:15 Plt Count 258 10^3/uL (150-450) 08/29/19 06:15 Lymph % (Auto) 30.2 % (13-45) 08/28/19 14:37 [place] % (Auto) 10.0 % (3-13) 08/28/19 14:37 Eos % (Auto) 0.9 % (0-6) 08/28/19 14:37 Baso % (Auto) 0.3 % (0-2) 08/28/19 14:37 Absolute Neuts (auto) 6.6 10^3/uL (1.7-8.2) 08/28/19 14:37 Absolute Lymphs (auto) 3.4 10^3/uL (0.5-4.7) 08/28/19 14:37 Absolute Monos (auto) 1.1 10^3/uL (0.1-1.4) 08/28/19 14:37 Absolute Eos (auto) 0.1 10^3/uL (0.0-0.6) 08/28/19 14:37 Absolute Basos (auto) 0.0 10^3/uL (0.0-0.2) 08/28/19 14:37 Seg Neutrophils % 58.6 % (42-78) 08/28/19 14:37 Urine Color STRAW 08/28/19 13:00 Urine Appearance CLEAR 08/28/19 13:00 Urine pH 6.0 (5.0-9.0) 08/28/19 13:00 Ur Specific [place] 1.007 08/28/19 13:00 Urine Protein NEGATIVE mg/dL (NEGATIVE) 08/28/19 13:00 Urine Glucose (UA) NEGATIVE mg/dL (NEGATIVE) 08/28/19 13:00 Urine Ketones NEGATIVE mg/dL (NEGATIVE) 08/28/19 13:00 Urine Blood NEGATIVE (NEGATIVE) 08/28/19 13:00 Urine Nitrite NEGATIVE (NEGATIVE) 08/28/19 13:00 Urine Bilirubin NEGATIVE (NEGATIVE) 08/28/19 13:00 Urine Urobilinogen NEGATIVE mg/dL (<2.0) 08/28/19 13:00 Ur Leukocyte Esterase NEGATIVE (NEGATIVE) 08/28/19 13:00 Urine Ascorbic Acid NEGATIVE (NEGATIVE) 08/28/19 13:00 Membranes Rupture POSITIVE (NEGATIVE) H 08/28/19 13:30 Urine Opiates Screen NEGATIVE 08/28/19 13:00 Urine Methadone Screen NEGATIVE 08/28/19 13:00 Ur Barbiturates Screen NEGATIVE 08/28/19 13:00 Ur Phencyclidine Scrn NEGATIVE 08/28/19 13:00 Ur Amphetamines Screen NEGATIVE 08/28/19 13:00 U Benzodiazepines Scrn NEGATIVE 08/28/19 13:00 Urine Cocaine Screen NEGATIVE 08/28/19 13:00 U Marijuana (THC) Screen NEGATIVE 08/28/19 13:00 RPR NONREACTIVE (NONREACTIVE) 08/28/19 14:37 Blood Type A NEGATIVE 08/29/19 06:15 Antibody Screen NEGATIVE 08/28/19 14:37 Screen NEGATIVE 08/29/19 06:15
== END 2019-08-30 16:50 | disposition home or self-care (01) | DRG 807 ==
LOC: LC 12:41 → LR 13:58 → 2S 17:05
PROVIDERS: ADMIT Obstetrics & Gynecology; ATTEND Obstetrics & Gynecology
PROC: 10E0XZZ Delivery of Products of Conception, External Approach (ICD-10-PCS; principal; 2019-08-28)
PROC: 0KQM0ZZ Repair Perineum Muscle, Open Approach (ICD-10-PCS; 2019-08-28)
PROC: 3E0234Z Introduction of Serum, Toxoid and Vaccine into Muscle, Percutaneous Approach (ICD-10-PCS; 2019-08-29)
DX: O99.52 Diseases of the respiratory system complicating childbirth (principal); Z37.0 Single live birth; O77.0 Labor and delivery complicated by meconium in amniotic fluid; O99.344 Other mental disorders complicating childbirth; O26.893 Other specified pregnancy related conditions, third trimester; J45.909 Unspecified asthma, uncomplicated; F41.8 Other specified anxiety disorders; O70.1 Second degree perineal laceration during delivery; O99.334 Smoking (tobacco) complicating childbirth; F17.210 Nicotine dependence, cigarettes, uncomplicated; Z67.11 Type A blood, Rh negative; Z3A.39 39 weeks gestation of pregnancy
CPT/HCPCS: 36415; 80307; 81005; 84112; 85025; 85027; 85461; 86592; 86850; 86900; 86901; 88307; 90715; J2300; J2590; J2790; J3490